=== PATIENT | female | born 1945 | race Caucasian/White ===

== ENCOUNTER 2021-08-17 10:41 | Emergency (ER) | payer MEDICARE, OTHER ==
[2021-08-17 11:26] LABS: BILIRUBIN NEGATIVE (NEGATIVE); BLOOD 1+ Ery/uL (NEGATIVE); CLARITY CLEAR (CLEAR); COLOR YELLOW (YELLOW); GLUCOSE (U) NORMAL (NORMAL); LEUKOCYTES NEGATIVE Leu/uL (NEGATIVE); NITRITE NEGATIVE (NEGATIVE); PROTEIN NEGATIVE (NEGATIVE); UROBILINOGEN 0.2 mg/dL (0.2-1.0)
[2021-08-17 11:42] LABS: BACTERIA 1+; BASOPHIL 0.7 % (0-2); EOSINOPHIL 1.6 % (0-7); HCT 46.3 % (37.0-47.0); HGB 14.8 g/dl (12.5-16.0); LYMPHOCYTE 28.4 % (15-48); MCH 30.1 pg (25.0-31.0); MCV 94.3 fL (78.0-100.0); MONOCYTE 11.3 % (0-12); MPV 9.3 fL (6.0-9.5); MUCOUS MODERATE; NEUTROPHIL 57.8 % (41-80); NRBC 0; PLT 189 K/uL (150-400); RBC 4.91 M/uL (4.20-5.40); RDW 12.9 % (11.5-14.0); SQUAMOUS EPITHELIAL CELLS RARE; WBC 5.6 K/uL (4.0-10.5)
[2021-08-17 12:40] LABS: ALBUMIN 3.5 g/dL (3.4-5.0); BILIRUBIN - TOTAL 0.6 mg/dL (0.2-1.0); BUN/CREAT RATIO (CALC) 14.1 RATIO; CREATININE 0.78 mg/dL (0.51-0.95); GLOBULIN (CALCULATION) 3.6 g/dL; TOTAL PROTEIN 7.1 g/dL (6.4-8.2)
[2021-08-17] MEDS ORDERED: LOMOTIL1 EACH PO (13:50)
== END 2021-08-17 14:45 | disposition home or self-care (01) ==
LOC: FER 10:41
PROVIDERS: Emergency Medicine
DX: R19.7 Diarrhea, unspecified (principal); Z20.822 Contact with and (suspected) exposure to COVID-19
CPT/HCPCS: 36415; 74022; 80053; 81001; 85025; J7030; U0002